=== PATIENT | female | born 1985 | race Caucasian/White ===

== ENCOUNTER → 2016-06-21 | Outpatient (CLI) | payer BC ==
[~2016-06-21] MED LIST: ALBU18HF2 INH; LISI1TAB11 PO; MONT10TA15 PO; MUPI22OI2 TOP; PRED20TA PO; SULF1TAB3 PO
--- NOTE | 2016-06-22 11:25 | DI ---
Indication: ITS.REASON: S99.921A INJURY Procedure: FOOT RIGHT 3 VIEWS: Encounter: Initial Comparison: None Technique: Three views of the right foot were obtained Findings: Bony mineralization is normal. Suggestion of mild sclerosis and periosteal thickening of the proximal second through fourth phalanges without cortical disruption appreciated to suggest acute fracture, potentially normal variant versus old injury. The remaining visualized osseous structures appear intact. The joint spaces are maintained. Mild soft tissue swelling of the dorsal forefoot noted on the lateral radiograph. No radiopaque foreign body. Impression: Mild dorsal forefoot soft tissue swelling with no acute osseous fracture or malalignment appreciated. .
== END ==
LOC: IMA 17:02
PROVIDERS: ATTEND Family Medicine
DX: M79.89 Other specified soft tissue disorders (principal)